=== PATIENT | female | born 1955 | race Caucasian/White ===

== ENCOUNTER 2022-10-19 16:16 | Inpatient (IN) | payer MEDICARE ==
[~2022-10-19] VITALS: Ht 157.5 cm; Wt 90.7 kg
[2022-10-19] MEDS ORDERED: IBUPROFEN 600 MG TAB PO STA (16:43)
[2022-10-19 17:28] LABS: BASOPHILS % 0.1 % (0.0-1.0); HEMATOCRIT 38.4 % (34.2-44.1); HEMOGLOBIN 13.4 g/dL (12.0-16.0); LYMPHOCYTES # (AUTO) 0.8 (1.0-3.2); MEAN CORPUSCULAR HEMOGLOBIN 31.2 pg (28-32); MEAN CORPUSCULAR HGB CONC 34.9 g/dL (31-35); MEAN CORPUSCULAR VOLUME 89.5 fL (81-99); MONOCYTES # (AUTO) 0.8 (0.2-0.8); MONOCYTES % 9.6 % (4.4-11.3); NEUTROPHILS # (AUTO) 6.6 (2.1-6.9); NEUTROPHILS % 79.6 % (38.7-80.0); PLATELET COUNT 154 x10e3/uL (140-360); RED BLOOD COUNT 4.29 x10e6/uL (3.6-5.1); RED CELL DISTRIBUTION WIDTH 13.9 % (11.7-14.4)
[2022-10-19 17:31] LABS: PROTHROMBIN TIME 13.7 seconds (11.9-14.5)
[2022-10-19 17:32] LABS: PARTIAL THROMBOPLASTIN TIME 34.9 seconds (23.8-35.5)
[2022-10-19 17:38] LABS: CLARITY,URINE SL CLOUDY (CLEAR); COLOR,URINE AMBER (YELLOW); KETONES,URINE TRACE (NEGATIVE); LEUKOCYTE ESTERASE ,URINE NEGATIVE (NEGATIVE); NITRITE,URINE NEGATIVE (NEGATIVE); PROTEIN,URINE DIPSTICK 1+ (NEGATIVE); URINE UROBILINOGEN 2 mg/dL (0.2 - 1)
[2022-10-19 17:40] LABS: ALBUMIN 3.6 g/dL (3.5-5.0); ALBUMIN/GLOBULIN RATIO 0.9 (0.8-2.0); ANION GAP 15.3 mmol/L (8-16); CALCIUM 8.8 mg/dL (8.4-10.2); CREATININE, SERUM 0.84 mg/dL (0.57-1.11); POTASSIUM 3.3 mmol/L (3.5-5.1)
[2022-10-19 17:53] LABS: BACTERIA,URINE MODERATE /HPF; EPITHELIAL CELLS,URINE MODERATE /LPF; WBC,URINE (MAN) 0-5 /HPF (0-5)
[2022-10-19] MEDS ORDERED: IOPAMIDOL 370 MG/ML 100 ML INFUS..BTL INJ ONE (18:10)
[2022-10-19] MEDS ORDERED: CEFTRIAXONE 1 GM VIAL IM ONE (19:30)
[2022-10-19] MEDS ORDERED: NICOTINE 21 MG/EA PATCH TOP ONE (20:00)
[2022-10-19] MEDS ORDERED: ACETAMINOPHEN 325 MG TAB PO PRN (20:00)
[2022-10-19] MEDS ORDERED: ONDANSETRON HCL INJ 2MG/ML 2ML 2 MG/ML VIAL IV PRN (20:00)
[2022-10-19] MEDS ORDERED: CLONIDINE HCL 0.1 MG TAB PO PRN (20:00)
[2022-10-19 22:40] VITALS: BP 105/57; PULSE 89; RESP 18; TEMP 98.5; O2SAT 95
[2022-10-19 22:56] VITALS: BP 105/57; PULSE 89; RESP 18; TEMP 98.5; O2SAT 95
[2022-10-19] MEDS ORDERED: AMLODIPINE BESY10 MG PO (23:04)
[2022-10-19] MEDS ORDERED: LEVOTHYROXINE100 MCG PO (23:04)
[2022-10-19] MEDS ORDERED: CEFDINIR300 MG PO (23:04)
[2022-10-19] MEDS ORDERED: ATORVASTATIN CA40 MG PO (23:04)
[2022-10-19] MEDS ORDERED: PAXLOVID 300-11 EACH PO (23:04)
[2022-10-19] MEDS ORDERED: LOSARTAN-HCTZ1 EACH PO (23:04)
[2022-10-20] VITALS (13 sets, daily range): BP systolic 105–138; BP diastolic 57–74; PULSE 84–108; RESP 16–25; TEMP 98.3–99.4; O2SAT 87–98
[2022-10-20] MEDS: ALBUTEROL/IPRATROPIUM 3 ML NEB NEB SCH ×5 (03:30→23:20)
[2022-10-20] MEDS: NICOTINE 21 MG/EA PATCH TOP SCH (09:42)
[2022-10-20] MEDS ORDERED: GUAIFENESIN/CODEINE 5 ML LIQD PO PRN (12:45)
[2022-10-20] MEDS: LEVOFLOXACIN 500MG/D5W 100ML 100 ML IV SCH (12:57)
[2022-10-20] MEDS: ENOXAPARIN SOD INJ 40 MG/0.4 ML SYR SC SCH (16:27)
[2022-10-20] MEDS ORDERED: ACETAMINOPHEN/CODEINE 300MG - 30MG TAB PO PRN (19:15)
[2022-10-20] MEDS ORDERED: ONDANSETRON HCL 4 MG ORAL DISINTEGRATING TAB PO PRN (19:30)
[2022-10-21] VITALS (15 sets, daily range): BP systolic 101–140; BP diastolic 54–75; PULSE 88–102; RESP 18–23; TEMP 97.6–98.9; O2SAT 92–98
[2022-10-21] MEDS: ALBUTEROL/IPRATROPIUM 3 ML NEB NEB SCH ×5 (03:40→23:00)
[2022-10-21 05:49] LABS: BASOPHILS # (AUTO) 0.1 (0.0-0.1); BASOPHILS % 0.6 % (0.0-1.0); EOSINOPHILS # (AUTO) 0.1 (0.0-0.4); EOSINOPHILS % 0.6 % (0.0-6.0); HEMOGLOBIN 12.2 g/dL (12.0-16.0); LYMPHOCYTES # (AUTO) 1.4 (1.0-3.2); LYMPHOCYTES % 14.1 % (18.0-39.1); MEAN CORPUSCULAR HEMOGLOBIN 30.7 pg (28-32); MONOCYTES # (AUTO) 0.9 (0.2-0.8); NEUTROPHILS # (AUTO) 7.2 (2.1-6.9); NEUTROPHILS % 75.1 % (38.7-80.0); RED BLOOD COUNT 3.98 x10e6/uL (3.6-5.1); RED CELL DISTRIBUTION WIDTH 13.9 % (11.7-14.4)
[2022-10-21 06:11] LABS: ANION GAP 14.3 mmol/L (8-16); CALCIUM 8.8 mg/dL (8.4-10.2); CREATININE, SERUM 0.72 mg/dL (0.57-1.11); POTASSIUM 3.3 mmol/L (3.5-5.1)
[2022-10-21 06:12] LABS: PLATELET COUNT 125 x10e3/uL (140-360)
[2022-10-21] MEDS: LEVOTHYROXINE SODIUM 100 MCG TAB PO SCH (07:38)
[2022-10-21] MEDS: ATORVASTATIN 40 MG TAB PO SCH (08:37)
[2022-10-21] MEDS: NICOTINE 21 MG/EA PATCH TOP SCH (08:37)
[2022-10-21] MEDS: AMLODIPINE BESYLATE 10 MG TAB PO SCH (08:37)
[2022-10-21] MEDS: LEVOFLOXACIN 500MG/D5W 100ML 100 ML IV SCH (08:38)
[2022-10-21] MEDS ORDERED: KETOROLAC TROMETHAMINE 30 MG/ML VIAL IV ONE (11:30)
[2022-10-21] MEDS ORDERED: POTASSIUM CHLORIDE 10MEQ EA PO ONE (11:30)
[2022-10-21] MEDS ORDERED: METHYLPREDNISOLONE SOD SUCC 125 MG/2ML VIAL IV ONE (12:15)
[2022-10-21] MEDS: SALMETEROL/FLUTICASONE 250/50 INH SCH ×2 (12:42→19:00)
[2022-10-21] MEDS: ENOXAPARIN SOD INJ 40 MG/0.4 ML SYR SC SCH (17:48)
[2022-10-21] MEDS ORDERED: KETOROLAC TROMETHAMINE 30 MG/ML VIAL IV PRN (18:45)
[2022-10-22] VITALS (8 sets, daily range): BP systolic 108–127; BP diastolic 63–87; PULSE 86–108; RESP 16–22; TEMP 97.5–98; O2SAT 94–100
[2022-10-22] MEDS: LEVOTHYROXINE SODIUM 100 MCG TAB PO SCH (05:36)
[2022-10-22] MEDS: ALBUTEROL/IPRATROPIUM 3 ML NEB NEB SCH ×2 (06:00→10:15)
[2022-10-22 06:47] LABS: ANION GAP 15.1 mmol/L (8-16); CALCIUM 8.9 mg/dL (8.4-10.2); CREATININE, SERUM 0.83 mg/dL (0.57-1.11); POTASSIUM 3.1 mmol/L (3.5-5.1)
[2022-10-22] MEDS: SALMETEROL/FLUTICASONE 250/50 INH SCH (07:01)
[2022-10-22] MEDS: AMLODIPINE BESYLATE 10 MG TAB PO SCH (08:56)
[2022-10-22] MEDS: ATORVASTATIN 40 MG TAB PO SCH (08:56)
[2022-10-22] MEDS: NICOTINE 21 MG/EA PATCH TOP SCH (08:56)
[2022-10-22] MEDS ORDERED: LEVOFLOXACIN 500 MG TAB PO SCH (09:00)
[2022-10-22] MEDS ORDERED: LEVOFLOXACIN500 MG PO (11:29)
[2022-10-22] MEDS ORDERED: POTASSIUM CHLORIDE 10MEQ EA PO ONE (11:30)
== END 2022-10-22 12:32 | disposition home or self-care (01) | DRG 194 ==
LOC: ER 16:23 → ERHOLD 19:39 → MED/SURG2 22:15 → OBSVTOIN 10-21 08:46
PROVIDERS: ADMIT Internal Medicine; ATTEND Internal Medicine
DX: J18.9 Pneumonia, unspecified organism (principal); E87.1 Hypo-osmolality and hyponatremia; J44.0 Chronic obstructive pulmonary disease with (acute) lower respiratory infection; I10 Essential (primary) hypertension; J44.9 Chronic obstructive pulmonary disease, unspecified; E87.6 Hypokalemia; E78.00 Pure hypercholesterolemia, unspecified; E03.9 Hypothyroidism, unspecified; F17.200 Nicotine dependence, unspecified, uncomplicated; E27.9 Disorder of adrenal gland, unspecified; Z20.822 Contact with and (suspected) exposure to COVID-19
CPT/HCPCS: 36415; 71045; 71260; 80048; 80053; 81001; 83605; 85025; 85610; 85730; 93005; 94640; 94799; 99284; G0378; J0696; J1650; J1885; J1956; J2930; Q9967